=== PATIENT | female | born 1985 | race Caucasian/White ===

== ENCOUNTER 2017-05-24 00:07 | Emergency (ER) | payer SELFPAY ==
[~2017-05-24] VITALS: Ht 167.6 cm; Wt 72.5 kg
[~2017-05-24 00:07] MED LIST: FERR-18; LEVE250T66 PO; PAM10; SUMA50TA3 PO; [UNRECOGNIZED DRUG - OTHER]
[2017-05-24 00:10] VITALS: Ht 167.6 cm; Wt 72.5 kg
--- NOTE | 2017-05-24 04:50 | RADRPT ---
PROCEDURE: CHEST - 1 VIEW CLINICAL INDICATION: 32-year-old female with chest pain and cough. TECHNIQUE: A single frontal AP portable view of the chest was performed. The images were reviewed on a PACS workstation. COMPARISON: Chest x-ray October 21, 2012. FINDINGS: The cardiomediastinal silhouette has a normal appearance. There is no evidence for an infiltrate. T he pulmonary vascularity is within normal limits. There is no evidence for pneumothorax or pneumomed iastinum. The osseous structures are intact. IMPRESSION: No evidence for active cardiopulmonary disease. .Gurpreet Loza MD, MD Date Time Electronically viewed and signed by .Gurpreet Loza MD, on 05/24/2017 04:49 .M/
[2017-05-24] MEDS ORDERED: D-ME473S18 PO (05:23)
[2017-05-24] MEDS ORDERED: TYL500 PO (05:25)
[2017-05-24 05:38] VITALS: BP 129/77; PULSE 71; RESP 20
--- NOTE | 2017-05-25 18:53 | ERD ---
ER Documentation Chief Complaint Date/Time DATE: 05/25/17 TIME: 18:49 Chief Complaint pressure like chest pain x 2 days, cough w/sob x 3 days HPI This is a 32-year-old female that presents to the ER with chest pain and shortness of breath that started 3 days ago she developed a cough. Cough is severe and constant. Patient admits to fevers and chills she also admits to nausea and nonbilious nonbloody vomiting. She denies any diarrhea. Patient states that she tried taking ibuprofen however did not help. She also admits to stuffy nose. She admits to sore throat. She denies any ear pain. There are no sick contacts at home. ROS 12 point review of systems was done, all negative except per HPI. Medications Home Meds Active Scripts Acetaminophen* (Tylenol*) 500 Mg Tab, 1000 MG PO Q8H Y for PAIN AND OR ELEVATED TEMP for 3 Days, TAB Prov:DEE MORRIS 05/24/17 Dextromethorphan Hb-Promethazine Hcl (Promethazine DM Syrup) 473 Ml Syrup, 10 ML PO Q6H Y for COUGH, #4 OZ Prov:DEE MORRIS 05/24/17 Reported Medications Sumatriptan Succinate* (Sumatriptan Succinate*) 50 Mg Tablet, 50 MG PO PRN 02/17/13 [Depo Vera Shot] No Conflict Check 10/21/12 Ferrous Sulfate (Iron) 325 Mg Tablet 10/21/12 Nortriptyline Hcl* (Aventyl*) 10 Mg Cap 10/21/12 Levetiracetam* (Keppra*) 250 Mg Tablet, 1000 MG PO BID, 0 Refills 01/17/12 Allergies Allergies: Coded Allergies: iodine (Verified Allergy, Severe, CLOSED THROAT, 02/17/13) aspirin (Verified Allergy, Unknown, 04/23/14) CHEST TIGHTNESS PMhx/Soc History of Surgery: No Anesthesia Reaction: No Hx Neurological Disorder: No Hx Respiratory Disorders: No Hx Cardiac Disorders: No Hx Psychiatric Problems: No Hx Miscellaneous Medical Probl: Yes (MIGRANES, SEIZURES) Hx Alcohol Use: No Hx Substance Use: Yes (MARIJUANA) Hx Tobacco Use: Yes Smoking Status: Smoker,current status unk Physical Exam Vitals Vital Signs Date Time Temp Pulse Resp B/P Pulse Ox O2 Delivery O2 Flow Rate FiO2 05/24/17 05:38 71 20 129/77 98 Room Air 05/24/17 00:10 98.5 74 20 131/77 98 Physical Exam GENERAL: The patient is well-developed, well-nourished, in no acute distress. NECK: Cervical spine is non tender with no step off. Supple, no nuchal rigidity HEENT: Atraumatic. Pupils equal, round and reactive to light. Extraocular muscles are grossly intact. Conjunctivae pink, no discharge. Bilateral tympanic membranes are clear with no evidence of erythema, effusion or dulling of the light reflex. Tonsilar erythema with no exudates or uvular deviation. Clear rhinorrhea. RESPIRATORY: Clear to auscultation bilaterally. There are no rales, wheezes or rhonchi. HEART: Regular rate and rhythm. No murmurs, clicks, rubs or gallops. EXTREMITIES: No clubbing or cyanosis. Full range of motion. Grossly neurovascularly intact. NEUROLOGIC: Alert and oriented. Cranial nerves II through XII are intact. SKIN: There is no rash. The skin is warm and dry. Procedures/MDM EKG 55bpm no ST elevation or t-wave inversion. read by Dr. Novoa Differential diagnosis includes but is not limited to; Viral URI, allergic rhinitis, bronchitis, pertussis,pneumonia. This is likely viral in etiology. Clinical suspicion for pneumonia is low as patient appears well, is not hypoxic or in any respiratory distress. Additionally, patients physical examination is benign. Plan was discussed with patient they understand and agree. Patient needs to follow up with PCP in 1-2 days or return to ER sooner if symptoms worsen. Departure Diagnosis: Primary Impression: Upper respiratory infection Condition: Stable Patient Instructions: Preventing Common Respiratory Infections Additional Instructions: Call your primary care doctor TOMORROW for an appointment during the next 1-2 days.See the doctor sooner or return here if your condition worsens before your appointment time. DEE MORRIS May 25, 2017 18:53
== END 2017-05-24 05:39 | disposition home or self-care (01) ==
LOC: FTE 00:07
DX: J06.9 Acute upper respiratory infection, unspecified (principal); Z87.891 Personal history of nicotine dependence
CPT/HCPCS: 71010; 93005